=== PATIENT | female | born 1930 | race Caucasian/White ===

== ENCOUNTER 2017-04-29 11:40 | Outpatient (CLI) | payer MEDICARE ==
--- NOTE | 2017-04-30 10:54 | PET ---
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 Exam requested for restaging f ollowing chemotherapy. TECHNIQUE: PET scanning with CT attenuation correction was performed from the base of the brain through the prox imal thighs following the intravenous administration of 11 mCi [id number] in the left forearm. Imaging w as performed after an uptake interval of 52 minutes. COMPARISON: PET CT dated 08/25/16. FINDINGS: The previously noted focally intense uptake in the right breast is no longer seen. There is continued focally increased uptake in the right thyroid lobe nodule with a current SUV of 3. 5 (previously 3.4). No hypermetabolic axillary, internal mammary, cervical, mediastinal, hilar, abdominopelvic, or inguin al lymph nodes are seen. No hypermetabolic pulmonary nodules, liver, or adrenal lesions are identifie d. There is increased uptake in a linear fashion in the L1 and L4 vertebral bodies with a SUV of 3.8 and 2.7, respectively. These are most likely due to compression fractures, less likely lymphoma. Increas ed uptake is seen in the fracture of the left ischial tuberosity. There is physiologic activity in the GI and tracts, and the visualized portions of the brain. The CT scan used for attenuation correction demonstrates no evidence of pleural effusions or ascites. There is sigmoid diverticulosis, fibroid uterus, and scoliosis of the spine. IMPRESSION: 1. Increased uptake at L1 and L4 is most likely due to compression fractures, less likely lymphoma. Correlation with MRI of the lumbar spine (with and without IV contrast) is recommended. 2. Continued hypermetabolic activity in the right thyroid lobe nodule. POS: HARRY
== END 2017-04-29 11:41 | disposition home or self-care (01) ==
LOC: PET 11:40
PROVIDERS: ATTEND Internal Medicine Hematology & Oncology
DX: C83.39 Diffuse large B-cell lymphoma, extranodal and solid organ sites (principal); E04.1 Nontoxic single thyroid nodule
CPT/HCPCS: 78815; A9552